=== PATIENT | female | born 1995 | race Caucasian/White ===

== ENCOUNTER 2018-11-10 14:23 | Emergency (ER) | payer OTHER ==
[~2018-11-10] VITALS: Ht 162.6 cm; Wt 63.5 kg
[2018-11-10] MEDS ORDERED: SODIUM CHLORIDE 0.9% 1000ML 1,000 ML IV STA (14:51)
[2018-11-10] MEDS ORDERED: ONDANSETRON HCL INJ 2MG/ML 2ML 2 MG/ML VIAL IV NR (15:00)
[2018-11-10 15:26] LABS: BASOPHILS % 0.4 % (0.0-1.0); EOSINOPHILS % 0.4 % (0.0-6.0); HEMATOCRIT 36.2 % (34.2-44.1); HEMOGLOBIN 12.1 g/dL (12.0-16.0); MEAN CORPUSCULAR HEMOGLOBIN 30.6 pg (28-32); MEAN CORPUSCULAR HGB CONC 33.4 g/dL (31-35); MEAN CORPUSCULAR VOLUME 91.6 fL (81-99); MONOCYTES # (AUTO) 0.6 (0.2-0.8); MONOCYTES % 8.3 % (4.4-11.3); NEUTROPHILS # (AUTO) 5.3 (2.1-6.9); NEUTROPHILS % 76.6 % (38.7-80.0); PLATELET COUNT 225 x10e3/uL (140-360); RED BLOOD COUNT 3.95 x10e6/uL (3.6-5.1); RED CELL DISTRIBUTION WIDTH 12.8 % (11.7-14.4)
[2018-11-10 15:28] LABS: BILIRUBIN,URINE NEGATIVE (NEGATIVE); CLARITY,URINE CLEAR (CLEAR); KETONES,URINE TRACE (NEGATIVE); LEUKOCYTE ESTERASE ,URINE NEGATIVE (NEGATIVE); NITRITE,URINE NEGATIVE (NEGATIVE); PROTEIN,URINE DIPSTICK NEGATIVE (NEGATIVE); URINE UROBILINOGEN 0.2 mg/dL (0.2 - 1)
[2018-11-10 15:30] LABS: PREGNANCY TEST, URINE NEGATIVE (NEGATIVE)
[2018-11-10 15:36] LABS: BACTERIA,URINE MODERATE /HPF; COLOR,URINE YELLOW (YELLOW); EPITHELIAL CELLS,URINE MANY /LPF
[2018-11-10 15:44] LABS: ALANINE AMINOTRANSFERASE 11 IU/L (0-55); ALBUMIN 3.9 g/dL (3.5-5.0); ALBUMIN/GLOBULIN RATIO 1.1 (0.8-2.0); ALKALINE PHOSPHATASE 55 IU/L (40-150); ANION GAP 12.6 mmol/L (8-16); BLOOD UREA NITROGEN 12 mg/dL (7-26); BUN/CREATININE RATIO 15 (6-25); CALCIUM 8.9 mg/dL (8.4-10.2); CARBON DIOXIDE 23 mmol/L (22-29); CHLORIDE 106 mmol/L (98-107); CREATINE KINASE 57 IU/L (29-168); CREATININE, SERUM 0.81 mg/dL (0.57-1.11); EST GLOMERULAR FILTRATION RATE > 60 ML/MIN (60-); GLUCOSE 117 mg/dL (74-118); LIPASE 14 U/L (8-78); MAGNESIUM 2.2 MG/DL (1.3-2.1); POTASSIUM 3.6 mmol/L (3.5-5.1); SODIUM 138 mmol/L (136-145)
--- NOTE | 2018-11-10 16:47 | Diagnostic Imaging Report ---
EXAMINATION: Head CT HISTORY: Lightheadedness, dizziness, passed out, weakness. COMPARISON: None. TECHNIQUE: Multidetector axial images were obtained without contrast from the foramen magnum to the vertex . The images were reconstructed using brain and bone algorithms. Thin section brain images were reformatted into coronal and sagittal planes. Image quality: Motion/streaking artifact limits the evaluation of the skull base and posterior cranial fossa. Dose modulation, iterative reconstruction, and/or weight based adjustment of the mA/kV was utilized to reduce the radiation dose to as low as reasonably achievable. FINDINGS: Parenchyma: 1. No abnormal densities. 2. No mass or hemorrhage. No CT evidence of acute territorial vascular insult. Extra-axial spaces:No abnormal density. No extra-axial fluid collections Brain volume: Normal for age. Ventricles: No hydrocephalus or displacement. Arteries: No density suggestive of thrombus. Dural sinuses: No abnormal density. Extra-axial spaces: No abnormal density. Foramen magnum: No mass, Chiari malformation, or basilar invagination. Sella: No obvious mass. Paranasal/mastoid sinuses: Imaged portions unremarkable. Skull/Scalp: No lytic or blastic lesions. No fractures. IMPRESSION: Normal head CT. Signed by: Dr. Traci Ibrahim M.D. on 11/10/2018 4:43 PM
--- NOTE | 2018-11-10 17:09 | Diagnostic Imaging Report ---
EXAMINATION: CHEST SINGLE (PORTABLE) INDICATION: ^ERMD ORDER ^[id number] ^1625 ^Y COMPARISON: None FINDINGS: AP view TUBES and LINES: None. LUNGS: Lungs are well inflated. Lungs are clear. There is no evidence of pneumonia or pulmonary edema. PLEURA: No pleural effusion or pneumothorax. HEART AND MEDIASTINUM: The cardiomediastinal silhouette is unremarkable.. BONES AND SOFT TISSUES: No acute osseous lesion. Soft tissues are unremarkable. UPPER ABDOMEN: No free air under the diaphragm. IMPRESSION: No acute thoracic abnormality. Signed by: Dr. Marlene Aaron M.D. on 11/10/2018 5:06 PM
[2018-11-10 18:22] VITALS: BP 113/71
== END 2018-11-10 18:24 | disposition home or self-care (01) ==
LOC: ER 14:23
DX: R42 Dizziness and giddiness (principal); R55 Syncope and collapse; R11.2 Nausea with vomiting, unspecified; N92.0 Excessive and frequent menstruation with regular cycle; N89.8 Other specified noninflammatory disorders of vagina; M79.89 Other specified soft tissue disorders; D68.9 Coagulation defect, unspecified; Z86.73 Personal history of transient ischemic attack (TIA), and cerebral infarction without residual deficits
CPT/HCPCS: 36415; 70450; 71045; 80053; 81001; 81025; 82550; 82553; 83690; 83735; 83880; 84484; 85025; 93005; 99284; J2405; J7030

== ENCOUNTER 2019-01-04 22:14 | Emergency (ER) | payer OTHER ==
[~2019-01-04] VITALS: Ht 162.6 cm; Wt 63.5 kg
--- OUTSIDE RECORDS SUMMARY | 2019-01-04 22:16 | XMS REPORT ---
Author Author [facility] Address Unknown Phone Unavailable Care Team Providers Care Facing End Trimmer Name Role Phone ZHOU AHUMADA Unavailable Unavailable RADHA CHOW Unavailable Unavailable Problems This patient has no known problems. Allergies, Adverse Reactions, Alerts This patient has no known allergies or adverse reactions. Medications This patient has no known medications. Results Test Description Test Time Test Comments Text Results Atomic Results Result Comments TISSUE EXAM 2019-01-04 12:56:00 Surgical Pathology Report Case: [id number] Authorizing Provider: Zhou Ahumada Jr., MD Collected: 01/03/2019 0842 Ord ering Location: [facility] - Perioperative Received: 01/03/2019 0954 Services Pathologist: Matty Terry MD Specimens: A) - Tonsil, Right B) - Tonsil, Left A. TONSIL, RIGHT, TONSILLECTOMY: - REACTIVE FOLLICULAR LYMPHOID HYPERPLASIA - FOCAL COLLECTIONS OF FILAMENTOUS ORGANISMS WITHIN CRYPTS - NO MALIGNANCY IDENTIFIEDB. TONSIL, LEFT, TONSILLECTOMY: - REACTIVE FOLLICULAR LYMPHOID HYPERPLASIA - NO MALIGNANCY IDENTIFIED Signing Pathologist Direct Phone Line: [phone] signed by Matty Terry MD on 01/04/2019 at 12:56 [id number] X 2Chronic tonsillitis. Procedure is tonsillectomy A. Right tonsil. B. Left tonsil The instrument, containers, paperwork and cassettes all read [id number].Received in formalin labeled with the patient's name (Lawrence) and medical record number.Specimen A: Received in formalin labeled "tonsil, right" is a 3.5 x 2.4 x 1.5 cm, pink-hurd, ovoid tonsil. Sectioning reveals a pink-hurd cut surface with occasional sulfa granule. No mass is noted. One corporate representative section is submitted in cassette A1.Specimen B: Received in formalin labeled "tonsil, left" is a 3.2 x 2.1 x 1.8 cm, pink-hurd, ovoid tonsil. Sectioning reveals a pink-hurd cut surface. No mass is noted. One corporate representative section is submitted in cassette B1. JF/ew POCT-GLUCOSE METER 2019-01-03 11:22:00 POC-GLUCOSE METER (BEAKER) (test gqqy=0046) 108 mg/dL 70-110 TESTED AT [place] [id number] [facility] [id number] (MANUAL DIFFERENTIAL)2018-12-27 17:59:00* Test Item Value Reference Range Comments NEUTROPHILS - REL (DIFF) (BEAKER) (test mqts=8409) 54 % LYMPHOCYTES - REL (DIFF) (BEAKER) (test xfbk=9553) 38 % MONOCYTES - REL (DIFF) (BEAKER) (test mbhv=8134) 6 % EOSINOPHILS - REL (DIFF) (BEAKER) (test cauk=0653) 2 % NEUTROPHILS - ABS (DIFF) (BEAKER) (test ftmb=2868) 3.67 K/ L 1.80-8.00 LYMPHOCYTES - ABS (DIFF) (BEAKER) (test jbbu=0593) 2.58 K/ L 1.48-4.50 MONOCYTES - ABS (DIFF) (BEAKER) (test tuba=0567) 0.41 K/ L 0.00-1.30 EOSINOPHILS - ABS (DIFF) (BEAKER) (test oznb=8560) 0.14 K/ L 0.00-0.50 TOTAL COUNTED (BEAKER) (test ufob=0038) 100 WBC MORPHOLOGY (BEAKER) (test hllf=226) Normal PLT MORPHOLOGY (BEAKER) (test oqqg=297) Normal RBC MORPHOLOGY (BEAKER) (test pvtc=289) Normal CBC W/PLT COUNT & AUTO [id number] 17:58:00* Test Item Value Reference Range Comments WHITE BLOOD CELL COUNT (BEAKER) (test xzpw=097) 6.8 K/ L 4.0-10.0 RED BLOOD CELL COUNT (BEAKER) (test lgki=578) 4.02 M/ L 4.00-5.00 HEMOGLOBIN (BEAKER) (test xzij=597) 12.1 GM/DL 12.0-15.5 HEMATOCRIT (BEAKER) (test zqpc=949) 37.2 % 36.0-46.0 MEAN CORPUSCULAR VOLUME (BEAKER) (test bosq=779) 92.5 fL 82.0-99.0 MEAN CORPUSCULAR HEMOGLOBIN (BEAKER) (test jhtd=490) 30.1 pg 27.0-33.0 MEAN CORPUSCULAR HEMOGLOBIN CONC (BEAKER) (test bsuq=889) 32.5 GM/DL 32.0-36.0 RED CELL DISTRIBUTION WIDTH (BEAKER) (test xbbh=961) 12.5 % 12.0-15.0 PLATELET COUNT (BEAKER) (test apuc=236) 241 K/CU MM 150-430 MEAN PLATELET VOLUME (BEAKER) (test nsrm=086) 9.4 fL 6.0-11.5 NUCLEATED RED BLOOD CELLS (BEAKER) (test amgl=342) 0 /100 WBC 0-0 PT/[id number] 17:24:00* Test Item Value Reference Range Comments PROTIME (BEAKER) (test eaxk=633) 13.7 seconds 11.8-14.4 INR (BEAKER) (test owtc=296) 1.1 1.2-1.5 PARTIAL THROMBOPLASTIN TIME (BEAKER) (test hriw=148) 31.9 seconds 23.2-36.1 RECOMMENDED COUMADIN/WARFARIN INR THERAPY RANGESSTANDARD DOSE: 2.0 - 3.0 Inclu amanda: PROPHYLAXIS for venous thrombosis, systemic embolization; TREATMENT for mi ous thrombosis and/or pulmonary embolus.HIGH RISK: Target INR is 2.5-3.5 for pat ients with mechanical heart valves.CHEST SINGLE (PORTABLE)2018-11-10 17:05:00 [place] [address] Patient Name: STEPHON HERRERA MR #: [id number] : 1995 Age/Sex: 23/F Req #: [id number] Adm Physician: Ordered by: CLAUDINE MAI, RADHA MAI Report #: [id number] Location: ER Room/Bed: Procedure: DX/CHEST SINGLE (PORTABLE) Exam Date: 11/10/18 Ex am Time: 1625 REPORT STATUS: Signed EXAMINATION: CHEST SINGLE (PORTABLE) INDICATION: ERMD OR MICHELLE [id number] 1625 Y COMPARISON: None FINDINGS: AP view TUBES and LINES: None. LUNGS: Lungs are well inflated. Lung s are clear. There is no evidence of pneumonia or pulmonary edema. PLEU RA: No pleural effusion or pneumothorax. HEART AND MEDIASTINUM: The cardi omediastinal silhouette is unremarkable.. BONES AND SOFT TISSUES: No acu te osseous lesion. Soft tissues are unremarkable. UPPER ABDOMEN: No free air under the diaphragm. IMPRESSION: No acute thoracic abnormality. Signed by: Dr. Marlene Ohara M.D. on 11/10/2018 5:06 PM Dictated By: MARLENE OHARA MD 05 Transcribed By: SHEFALI on 11/10/181705 COPY TO: RADHA CHOW CT BRAIN [id number] 16:40:00 [place] [address] Patient Name: STEPHON HERRERA MR #: [id number] : 1995 Age/Sex: 23/F Req #: [id number] Adm Physician: Ordered by: RADHA CHOW MD, MD Report #: [id number] Location: ER Room/Bed: Procedure: CT/CT BRAIN WO Exam Date: 11/10/18 Exam Time: 161 5 REPORT STATUS: Signed EXAMINAT ION: Head CT HISTORY: Lightheadedness, dizziness, passed out, weakness. COMPARISON: None. TECHNIQUE: Multidetector axial images were obtained without contrast from the foramen magnum to the vertex . The images were reconstructed using brain and bone algorithms. Thin section brain images were reformatted into coronal and sagittal planes. Image quality: Motion/streaking artifact l imits the evaluation of the skull base and posterior cranial fossa. Dose mod ulation, iterative reconstruction, and/or weight based adjustment of the mA/kV was utilized to reduce the radiation dose to as low as reasonably achievable. FINDINGS: Parenchyma: 1. No abnormal densities. 2. No mass or hemorrhage. No CT evidence of acute territorial vascular insult. Extra-axial spaces:No abnormal density. No extra-axial fluid collectio ns Brain volume: Normal for age. Ventricles: No hydrocephalus or displacement. Arteries: No density suggestive of thrombus. Dur al sinuses: No abnormal density. Extra-axial spaces: No abnormal density . Foramen magnum: No mass, Chiari malformation, or basilar invagination. Sella: No obvious mass. Paranasal/mastoid sinuses: Imaged port ions unremarkable. Skull/Scalp: No lytic or blastic lesions. No fractur es. IMPRESSION: Normal head CT. Signed by: Dr. Yordan Ibrahim M.D. on 11/10/2018 4:43 PM Dictated By: YORDAN IBRAHIM MD 1643 Transcribed By: SHEFALI on 11/10/18 1643 COPY TO: RADHA CHOW - XR C-SPINE 4-5 [id number] 10:38:00 Name: STEPHON HERRERA [facility] : 1995 Age/S:18 /F [address] [facility] Unit#:[id number] Loc: [place] [address] Phys: Roselyn Villafana V MOVIE THEATER USHER Dis Date: PHONE #: [phone] Status: UNK FAX #: [phone] Exam Date: 12/29/2013 Re ason: TUMBLING INJURY EXAMS: CPT CODE: [id number] XR C-SPINE 4-5 V 65703 HISTORY: TUMBLING INJURY TECHNIQUE: AP, bilateral oblique, lateral, and open mouth odontoid views of the cervical spine. COMPARISON: None FINDINGS: Craniocervical and cervicothoracic articulations are appropriate. Slight cervical levoscoliosis and straightening of the lordosis. Jakob tebral body alignment is satisfactory. Vertebral body heights are preserve d. Disc spaces are preserved. No prevertebral soft tissue swelling. Lung a pices are clear. IMPRESSION: No acute fracture or subluxation. Slight cervical levoscoliosis and straightening of the lordosis, possible muscle spasm. at 1038 Reported and signed b y: Lalitha Robison D.O. CC: Roselyn Villafana Technologist: CHUCKY SMITH RT(R),CT Trnscrpt Data: 12/30/2013 (1038) [email or web address] Orig P rint D/T: S: 12/30/2013 (1041) PAGE 1 Signed Report - XR T-SPINE 3 [id number] 10:37:00 Name: STEPHON HERRERA [facility] : 1995 Age/S:18 /F [address] [facility] Unit#:[id number] Loc: [place] [address] Phys: Roselyn Villafana Dis Date: PHONE #: [phone] Status: [facility] FAX #: [phone] Exam Date: 12/29/2013 Reason: TUMBLING INJURY EXAMS: CPT CODE: [id number] XR T-SPINE 3 VIEWS 52029 HISTORY: TUMBLING INJURY EXAM: AP, lateral, and swimmers views of the thoracic spine. FINDINGS: No acute fracture or subluxation. Vertebral body alignment is satisfactory. Vertebral body heights are preserved. Disc spaces are preserved. No paraspinal soft tissue contour abnormality. IMPRESSION: Negative radiographic examination of the thoracic spine. at 1037 Reported and signed by: Lalitha Robison D.O. CC: Broderick,Roselyn V [employer] USHER Technologist: CHUCKY SMITH RT(R),CT Trnscrpt Data: 12/30/2013 (1037) [email or web address] Orig Print D/T: S: 12/30/2013 (9083) PAGE 1 Signed Report
[2019-01-04] MEDS ORDERED: SODIUM CHLORIDE 0.9% 1000ML 1,000 ML IV ONE (22:30)
== END 2019-01-04 23:22 | disposition home or self-care (01) ==
LOC: ER 22:14
DX: J02.9 Acute pharyngitis, unspecified (principal); Z98.890 Other specified postprocedural states
CPT/HCPCS: 99283; J7030